=== PATIENT | male | born 2000 | race Caucasian/White ===

== ENCOUNTER 2018-06-12 02:34 | Emergency (ER) | payer BC ==
[2018-06-12 02:42] VITALS: BP 143/103
[2018-06-12] MEDS ORDERED: diphenhydrAMINE 25 MG CAP PO ONE ×2 (02:43→02:45)
--- NOTE | 2018-06-12 03:04 | EDPHY ---
H & P Stated Complaint: TESTICLE AND WHOLE BODY SWELLING Time Seen by Provider: 06/12/18 02:46 HPI/ROS: HPI The patient presents with several hours of lip swelling and scrotal swelling which is pruritic in nature. The patient was feeling constipated earlier in the day and generally unwell. He was able to have a bowel movement in the late afternoon. He then went out to dinner and ate foods that he usually eats. He then developed diarrhea so took a dose of Imodium and ibuprofen. Several hours later he felt itching in his lip and scrotal. He noticed that his upper lip was swollen. He did not have any tongue swelling or difficulty swallowing, drooling, shortness of breath, wheezing, vomiting. He did this that his scrotum bilaterally with swollen and non tender though erythematous. He has no prior history of similar. He has no family history of angioedema. His mother has an allergy to bee stings.. REVIEW OF SYSTEMS 10 systems were reviewed and negative with the exception of the elements mentioned in the history of present illness. PMHx: Healthy Soc Hx: College student, here with his girlfriend PHYSICAL General Appearance: Alert, no distress Eyes: Pupils equal and round no pallor or injection ENT, Mouth: Upper lip is slightly edematous, no tongue swelling, no uvular edema, posterior pharynx is slightly erythematous, Mucous membranes moist Respiratory: There are no retractions, lungs are clear to auscultation Cardiovascular: Regular rate and rhythm Gastrointestinal: Abdomen is soft and non-tender, no masses, bowel sounds normal : Bilateral scrotal edema with erythema, no areas of tenderness are present, normal cremasteric reflex Neurological: A&O, moves all extremities Skin: Warm and dry, no rashes Musculoskeletal: Neck is supple non tender Extremities: symmetrical, full range of motion Psychiatric: Patient is oriented X 3, there is no agitation Source: Patient Exam Limitations: No limitations - Personal History Current Tetanus Diphtheria and Acellular Pertussis (TDAP): Yes - Medical/Surgical History Hx Asthma: No Hx Chronic Respiratory Disease: No Hx Diabetes: No Hx Cardiac Disease: No Hx Renal Disease: No Hx Cirrhosis: No Hx Alcoholism: No Hx HIV/AIDS: No Hx Splenectomy or Spleen Trauma: No Other PMH: ORTHO - Social History Smoking Status: Never smoked Constitutional: Initial Vital Signs Temperature (C) 36.7 C 06/12/18 02:39 Heart Rate 77 06/12/18 02:39 Respiratory Rate 16 06/12/18 02:39 Blood Pressure 143/103 H 06/12/18 02:39 O2 Sat (%) 97 06/12/18 02:39 O2 Delivery Mode Room Air Allergies/Adverse Reactions: No Known Allergies Allergy (Unverified 06/12/18 02:38) Home Medications: Medication Instructions Recorded NK [No Known Home Meds] 06/12/18 Medical Decision Making Differential Diagnosis: 18-year-old healthy male presents with several hours of upper lip and scrotal swelling with erythema after taking Imodium and ibuprofen. I suspect angioedema in his case, I would suspect cause as ibuprofen. However, patient reports taking ibuprofen multiple previous occasions with no episodes that are similar. Food allergy is a consideration. Hereditary angioedema is also possible, however patient has no family history. He has had symptoms for several hours with no progression at this time. He is generally well-appearing with no airway involvement. I have given him a dose of Benadryl and famotidine and will discharge him with follow up with [facility]-minus charge account clerk. He was instructed to avoid ibuprofen. - Data Points Medications Given: Discontinued Medications Diphenhydramine HCl (Benadryl) 25 mg PO EDNOW ONE Stop: 06/12/18 02:46 Last Admin: 06/12/18 02:46 Dose: 25 mg Famotidine (Pepcid) 20 mg PO EDNOW ONE Stop: 06/12/18 03:06 Last Admin: 06/12/18 03:08 Dose: 20 mg Departure - Departure Disposition: Home, Routine, Self-Care Clinical Impression: Angioedema Qualifiers: Encounter type: initial encounter Qualified Code(s): T78.3XXA - Angioneurotic edema, initial encounter Condition: Good Instructions: Angioedema (ED) Additional Instructions: I recommend that you take Benadryl 25 mg every 6 hr. You can also take famotidine 20 mg every 12 hr. You should take both of these medications until your symptoms have improved. I recommend you follow up at the [facility] if your symptoms continue. You will need to have evaluation by an charge account clerk eventually. I have given you some names below. Referrals: [facility],. [Clinic] - As per Instructions Pawan Lopez MD [Medical Doctor] - As per Instructions Alhaji Allan MD [Medical Doctor] - As per Instructions
[2018-06-12] MEDS ORDERED: FAMOTIDINE 20 MG TAB PO ONE (03:05)
== END 2018-06-12 03:16 | disposition home or self-care (01) ==
DX: T78.3XXA Angioneurotic edema, initial encounter (principal); M79.89 Other specified soft tissue disorders; Z88.9 Allergy status to unspecified drugs, medicaments and biological substances